=== PATIENT | female | born 1950 | race Caucasian/White ===

== ENCOUNTER → 2017-09-05 | Outpatient (CLI) | payer MEDICARE, BC ==
[2017-09-05 13:59] LABS: APPEARANCE,URINE SLIGHTLY-CLOUDY; BILIRUBIN,URINE NEGATIVE (NEGATIVE); CALCIUM OXALATE CRYSTALS,URINE MODERATE /HPF; COLOR,URINE YELLOW; GLUCOSE, URINE NEGATIVE (NEGATIVE); KETONES,URINE NEGATIVE (NEGATIVE); LEUKOCYTE ESTERASE,URINE NEGATIVE (NEGATIVE); NITRITE,URINE NEGATIVE (NEGATIVE); PROTEIN,URINE NEGATIVE (NEGATIVE); URINE SPECIFIC GRAVITY 1.017
[2017-09-05 14:02] LABS: ABSOLUTE BASOPHILS # (AUTO) 0.1 10^3/uL (0.0-0.2); ABSOLUTE EOSINOPHILS # (AUTO) 0.3 10^3/uL (0.0-0.6); ABSOLUTE LYMPHOCYTES (AUTO) 1.6 10^3/uL (0.5-4.7); ABSOLUTE MONOCYTES (AUTO) 0.4 10^3/uL (0.1-1.4); ABSOLUTE NEUT (AUTO) 2.9 10^3/uL (1.7-8.2); BASOPHILS % (AUTO) 1.3 % (0-2); EOSINOPHILS % (AUTO) 6.4 % (0-6); HEMATOCRIT 37.2 % (36.0-47.0); LYMPHOCYTES % (AUTO) 29.6 % (13-45); MEAN CORPUSCULAR HGB CONC 32.3 g/dL (32.0-36.0); MEAN CORPUSCULAR VOLUME 81 fl (80-97); MONOCYTES % (AUTO) 8.3 % (3-13); PLATELET COUNT 185 10^3/uL (150-450); RED BLOOD COUNT 4.61 10^6/uL (3.72-5.28); RED CELL DISTRIBUTION WIDTH 17.3 % (11.5-14.0); SEGMENTED NEUTROPHILS % (AUTO) 54.4 % (42-78); TOTAL CELLS COUNTED % (AUTO) 100 %; WHITE BLOOD COUNT 5.4 10^3/uL (4.0-10.5)
[2017-09-05 14:20] LABS: ANION GAP 11 (5-19); BLOOD UREA NITROGEN 11 mg/dL (7-20); C-REACTIVE PROTEIN 7.6 mg/L (<10.0); CALCIUM 9.6 mg/dL (8.4-10.2); CARBON DIOXIDE 20 mmol/L (22-30); CHLORIDE 111 mmol/L (98-107); GLUCOSE 73 mg/dL (75-110); POTASSIUM 4.1 mmol/L (3.6-5.0); SODIUM 141.7 mmol/L (137-145)
[2017-09-05 14:28] LABS: ERYTHROCYTE SEDIMENTATION RATE 7 mm/hr (0-30)
--- NOTE | 2017-09-05 14:50 | RADIOLOGY REPORT (SQ) ---
EXAM DESCRIPTION: CHEST PA/LATERAL COMPLETED DATE/TIME: 09/05/2017 1:26 pm REASON FOR STUDY: PRE OP COMPARISON: CT chest 03/12/2011 Chest and rib detail films 02/06/2014 EXAM PARAMETERS: NUMBER OF VIEWS: two views TECHNIQUE: Digital Frontal and Lateral radiographic views of the chest acquired. RADIATION DOSE: NA LIMITATIONS: none FINDINGS: LUNGS AND PLEURA: Minimal bandlike atelectasis right lung base. Lungs are otherwise clear . Trace left pleural fluid in the lateral and posterior costophrenic sulcus. No pneumothorax. MEDIASTINUM AND HILAR STRUCTURES: No masses or contour abnormalities. HEART AND VASCULAR STRUCTURES: Tortuous uncoiled thoracic aorta, stable. BONES: Osteoporotic without thoracic compression deformity. HARDWARE: Clips right upper quadrant post cholecystectomy OTHER: No other significant finding. IMPRESSION: Minimal right basilar bandlike atelectasis. Trace left pleural fluid. TECHNICAL DOCUMENTATION: JOB ID: [id number] [employer]- All Rights Reserved
--- NOTE | 2017-09-05 22:32 | EKG REPORT ---
SEVERITY:- NORMAL ECG - SINUS RHYTHM : Confirmed by: Kaitlyn Sung 05-Sep-2017 22:31:15
== END ==
LOC: OD 12:19
PROVIDERS: ATTEND Orthopaedic Surgery
DX: Z01.810 Encounter for preprocedural cardiovascular examination (principal); Z01.812 Encounter for preprocedural laboratory examination; Z01.818 Encounter for other preprocedural examination; J94.8 Other specified pleural conditions
CPT/HCPCS: 36415; 71046; 80048; 81001; 85025; 85652; 86140; 93005; 93010

== ENCOUNTER 2017-09-19 07:34 | Inpatient (IN) | payer MEDICARE, BC ==
[~2017-09-19 07:34] MED LIST: BUPIVACAINE INJ/PF LIPOSOME/PF 266 MG/20 ML SDV IJ PRN; BUPIVACAINE INJ/PF LIPOSOME/PF 266 MG/20 ML SDV ONE; CEFAZOLIN INJ 1 GM VIAL IV PRN; IBUPROFEN 800 MG/NS 250 ML IV PRN; LACTATED RINGERS 1000 ML IV PRN; LANSOPRAZOLE 15 MG TAB.RAP.DR PO PRN; LIDOCAINE 0.5% INJ-PF (5 MG/ML) 50 ML SDV SUBCUT PRN; OXYCODONE HCL SR 10 MG TABLET PO PRN; THROMBIN (BOVINE) 5000 UNIT EPITAXIS KIT ONE; THROMBIN (BOVINE) TOPICAL 20000 UNIT VIAL ONE; THROMBIN (BOVINE) TOPICAL 5000 UNIT VIAL ONE; VANCOMYCIN HCL 1,000 MG in DEXTROSE 5%-WATER 250 ML IV PRN
--- NOTE | 2017-09-19 08:46 | RADIOLOGY REPORT (SQ) ---
EXAM DESCRIPTION: CHEST SINGLE VIEW COMPLETED DATE/TIME: 09/19/2017 8:33 am REASON FOR STUDY: pre-op COMPARISON: None. EXAM PARAMETERS: NUMBER OF VIEWS: One view. TECHNIQUE: Single frontal radiographic view of the chest acquired. RADIATION DOSE: NA LIMITATIONS: None. FINDINGS: LUNGS AND PLEURA: No opacities, masses or pneumothorax. No pleural effusion. Scarring at the lung bases. MEDIASTINUM AND HILAR STRUCTURES: No masses. Contour normal. HEART AND VASCULAR STRUCTURES: Heart normal in size. Normal vasculature. BONES: Old left humeral head fracture. HARDWARE: None in the chest. OTHER: No other significant finding. IMPRESSION: NO ACUTE RADIOGRAPHIC FINDING IN THE CHEST. Basilar scarring. TECHNICAL DOCUMENTATION: JOB ID: [id number] [employer]- All Rights Reserved
[2017-09-19] MEDS ORDERED: HYDROMORPHONE HCL INJ/PF 2 MG/ML AMPULE ONE ×2 (09:27)
[2017-09-19] MEDS ORDERED: TRANEXAMIC ACID INJ/PF 1,000 MG/10 ML SDV IV ONE ×2 (09:28→14:00)
[2017-09-19] MEDS ORDERED: ONDANSETRON HCL INJ/PF 4 MG/2 ML SDV ONE (09:28)
[2017-09-19] MEDS ORDERED: FENTANYL CITRATE INJ/PF 100 MCG/2 ML AMPUL ONE (09:28)
[2017-09-19] MEDS ORDERED: EPHEDRINE SULFATE INJ 50 MG/1 ML AMPULE ONE (09:28)
[2017-09-19] MEDS ORDERED: MIDAZOLAM 2 MG/2 ML INJ ONE (09:28)
[2017-09-19] MEDS ORDERED: BUPIVACAINE HCL/DEX-WATER/PF 15 MG/2 ML AMPULE ONE (09:31)
--- NOTE | 2017-09-19 10:54 | Operative Report ---
Operative Report DATE OF SURGERY: 09/19/17 PREOPERATIVE DIAGNOSIS: Loose left hip arthroplasty OPERATION: Revision left hip arthroplasty. Sciatic neural lysis SURGEON: IRVIN HEAD GEOSPATIAL TECHNICIAN: HIRAL DURAN ANESTHESIA: Spinal TISSUE REMOVED OR ALTERED: Cultures 2 to microbiology. Implants to CSS ESTIMATED BLOOD LOSS: 200 PROCEDURE: Implants used: Aragon modular druze stem 18 x 1 55, 23 mm proximal body +10, 36 mm ceramic head +2.5 mm Aragon PSL acetabular cage, 52 mm, 36 mm flat cross-link polyethylene liner With the patient in a right lateral decubitus position on the operating table left lower extremity hindquarter prepped and draped in a sterile fashion. A curvilinear incision made over the greater trochanter and a posterior approach the hip was taken. Upon entering the capsule clear yellow fluid is encountered this is sent for culture and sensitivity. Examination of the stem reveals that it is significantly retroverted as well as shortened. Sciatic nerve is identified coming out of the sciatic notch and traced down to the gluteal sling. Is protected throughout the remainder the case. Once the head is disimpacted is clear that the stem itself is loose. Is removed using an extractor system. There is no blunt bone loss. The acetabular repaired using hemispherical reamers until a 52 mm reamer seated. Subsequently 52 mm PSL cup was impacted into position and secured with one screw. A 36 mm flat cross-link Poliquin liner was impacted into position. Attention is now turned to the femur. The femur was prepared using conical reamers until an 18 x 1 55 reamer is seated. Subsequently a Edie modular druze stem 18 mm x 1 55 mm impacted femoral canal. The proximal femur was prepared using a series of cylindrical reamers for the proximal body until 23 mm reamer seated. Subsequently a trial reduction was now performed with 23 mm proximal standard body. Neck lengths are increased from 0-10 mm to increase soft tissue tension and presumably hopefully to restore natural leg length. Trial implants removed from the femur. The final 23 mm proximal body +10 mm is impacted onto the trunnion and secured with a torque wrench. A trial reduction was again performed with standard 36 mm head. It is felt that I can regain slightly more the neck length and a ceramic 36 mm head +2.5 mm extension is impacted onto the trunnion. The hip was reduced. The wound was salvatore care with pulse lavage. Is closed in layers with interrupted Vicryl followed by carlos. Sterile compressive dressing was applied and patient was returned to PACU in satisfactory condition.
[2017-09-19] MEDS ORDERED: PROMETHAZINE HCL 25 MG TABLET PO PRN (11:01)
[2017-09-19] MEDS ORDERED: SUMATRIPTAN SUCCINATE 100 MG TABLET PO PRN ×2 (11:01→21:00)
[2017-09-19] MEDS ORDERED: ZOLPIDEM TARTRATE 5 MG TABLET PO PRN (11:02)
[2017-09-19] MEDS ORDERED: MAG HYDROX/AL HYDROX/SIMETH SUSP 30 ML UDCUP PO PRN (11:02)
[2017-09-19] MEDS ORDERED: ONDANSETRON 4 MG TAB.RAPDIS PO PRN ×2 (11:02→15:00)
[2017-09-19] MEDS ORDERED: ACETAMINOPHEN 325 MG TABLET PO PRN (11:02)
[2017-09-19] MEDS ORDERED: RINGERS SOLUTION,LACTATED 1,000 ML IV PRN (11:02)
[2017-09-19] MEDS ORDERED: ONDANSETRON HCL INJ/PF 4 MG/2 ML SDV IV PRN (11:02)
[2017-09-19] MEDS ORDERED: HYDROMORPHONE HCL INJ/PF 2 MG/ML AMPULE IV PRN (11:07)
--- NOTE | 2017-09-19 11:53 | RADIOLOGY REPORT (SQ) ---
EXAM DESCRIPTION: PELVIS AP/ postop study left hip arthroplasty COMPLETED DATE/TIME: 09/19/2017 11:44 am REASON FOR STUDY: Post Op Long Cassette in PACU T84.031A MECH LOOSENING OF INTERNAL LEFT HIP PROST HETIC JOIN COMPARISON: None. NUMBER OF VIEWS: Three views TECHNIQUE: Digital radiographic images of the pelvis post-procedure LIMITATIONS: None. FINDINGS: BONES: No worrisome or unexpected findings post-procedure. DEVICE: Left hip arthroplasty. SOFT TISSUES: No worrisome findings. Expected postoperative soft tissue changes. IMPRESSION: Postop study left hip arthroplasty. TECHNICAL DOCUMENTATION: JOB ID: [id number] [email or web address]- All Rights Reserved
[2017-09-19] MEDS ORDERED: HYDROXYZINE PAMOATE 25 MG CAPSULE PO SCH (14:00)
[2017-09-19] MEDS: OXYCODONE HCL IR 5 MG TABLET PO PRN (14:50)
[2017-09-19] MEDS ORDERED: ACETAMINOPHEN 100 ML IV ONE (17:00)
[2017-09-19] MEDS: IBUPROFEN 800 MG in NORMAL SALINE 250 ML IV SCH (17:08)
[2017-09-19] MEDS ORDERED: LACTULOSE 30 GM PO SCH (18:00)
[2017-09-19] MEDS: MIRTAZAPINE 15 MG TABLET PO SCH (21:36)
[2017-09-19] MEDS: LACTULOSE SYRUP 20 GM/30 ML UDCUP PO SCH (21:36)
[2017-09-19] MEDS: RIVAROXABAN 10 MG TABLET PO SCH (21:36)
[2017-09-19] MEDS: OXYCODONE HCL SR 10 MG TABLET PO SCH (21:37)
[2017-09-19] MEDS: HYDROXYZINE PAMOATE 50 MG CAPSULE PO SCH (21:37)
[2017-09-19] MEDS: PREGABALIN 75 MG CAPSULE PO SCH (21:46)
[2017-09-19] MEDS ORDERED: VANCOMYCIN HCL 1,000 MG in DEXTROSE 5%-WATER 250 ML IV ONE (23:00)
[2017-09-20] MEDS: OXYCODONE HCL IR 5 MG TABLET PO PRN ×2 (02:00→14:23)
[2017-09-20] MEDS: IBUPROFEN 800 MG in NORMAL SALINE 250 ML IV SCH ×3 (02:00→17:08)
[2017-09-20] MEDS: ONDANSETRON HCL INJ/PF 4 MG/2 ML SDV IV PRN ×2 (02:00→13:11)
[2017-09-20] MEDS ORDERED: LANSOPRAZOLE 30 MG TAB.RAP.DR PO SCH (06:00)
[2017-09-20] MEDS: LANSOPRAZOLE 30 MG TAB.RAP.DR PO SCH (06:22)
[2017-09-20] MEDS: HYDROXYZINE PAMOATE 50 MG CAPSULE PO SCH ×3 (06:22→23:55)
[2017-09-20 06:46] LABS: HEMATOCRIT 26.8 % (36.0-47.0); HEMOGLOBIN 8.8 g/dL (12.0-15.5); MEAN CORPUSCULAR HEMOGLOBIN 26.9 pg (27.0-33.4); MEAN CORPUSCULAR HGB CONC 32.8 g/dL (32.0-36.0); MEAN CORPUSCULAR VOLUME 82 fl (80-97); PLATELET COUNT 117 10^3/uL (150-450); RED BLOOD COUNT 3.27 10^6/uL (3.72-5.28); RED CELL DISTRIBUTION WIDTH 16.8 % (11.5-14.0); WHITE BLOOD COUNT 7.4 10^3/uL (4.0-10.5)
[2017-09-20 07:00] LABS: ANION GAP 7 (5-19); BLOOD UREA NITROGEN 11 mg/dL (7-20); CALCIUM 8.1 mg/dL (8.4-10.2); CARBON DIOXIDE 20 mmol/L (22-30); CHLORIDE 114 mmol/L (98-107); GLUCOSE 103 mg/dL (75-110); POTASSIUM 3.9 mmol/L (3.6-5.0); SODIUM 141.1 mmol/L (137-145)
--- NOTE | 2017-09-20 07:00 | PDOC PROGRESS REPORT ---
Subjective Progress Note for:: 09/20/17 Subjective:: 67-year-old white female one day status post left hemiarthroplasty revision and conversion to total left hip arthroplasty. Patient lying comfortably in hospital bed noting that postoperative pain is present however it is different than preoperative pain. She notes that she had issues with bouts of diarrhea last night. Reason For Visit: MECHANICAL FAILURE LEFT HIP ARTHROPLASTY Physical Exam Vital Signs: Temp Pulse Resp BP Pulse Ox 36.8 C 71 20 129/60 H 100 09/19/17 23:25 09/19/17 23:25 09/19/17 23:25 09/19/17 23:25 09/19/17 23:25 Intake & Output 09/18/17 09/19/17 09/20/17 06:59 06:59 06:59 Intake Total 4450 Output Total 3150 Balance 1300 General appearance: PRESENT: no acute distress, well-developed, well-nourished Head exam: PRESENT: atraumatic, normocephalic Respiratory exam: PRESENT: unlabored Pulses: PRESENT: normal dorsalis pedis pul, +2 pedal pulses bilateral Vascular exam: PRESENT: normal capillary refill Additional comments: Patient sitting upright in hospital bed with bilateral lower extremities in full extension. Her OpSite dressing on the left hip is clean dry and intact. This is left in place. She has minimal lower extremity edema and brisk capillary refill to toes on bilateral lower extremities. Sensory motor functions are intact and leg lengths are equal and distal neurovascular exam is intact. Musculoskeletal exam: PRESENT: ambulatory Additional comments: Patient make slow progress with physical therapy as she is only ambulated 20 feet independently. She will continue to work with physical therapy to improve strength and range of motion of left lower extremity throughout her stay at the hospital. Neurological exam: PRESENT: alert, awake, oriented to person, oriented to place , oriented to time, oriented to situation, CN II-XII grossly intact. ABSENT: motor sensory deficit Psychiatric exam: PRESENT: appropriate affect, normal mood. ABSENT: homicidal ideation, suicidal ideation Skin exam: PRESENT: dry, intact, warm. ABSENT: cyanosis, rash Results Laboratory Results: 09/20/17 06:19 09/19/17 09/20/17 08:05 06:19 WBC 7.4 RBC 3.27 L Hgb 8.8 L Hct 26.8 L MCV 82 MCH 26.9 L MCHC 32.8 RDW 16.8 H Plt Count 117 L Blood Type O POSITIVE Antibody Screen NEGATIVE Impressions: Chest X-Ray 09/19/17 00:00 IMPRESSION: NO ACUTE RADIOGRAPHIC FINDING IN THE CHEST. Basilar scarring. Pelvis X-Ray 09/19/17 11:03 IMPRESSION: Postop study left hip arthroplasty. Assessment & Plan - Diagnosis (1) Mechanical failure of prosthetic joint Qualifiers: Encounter type: initial encounter Qualified Code(s): T84.019A - Broken internal joint prosthesis, unspecified site, initial encounter Is this a current diagnosis for this admission?: Yes - Plan Summary Plan Summary: 67-year-old white female one day status post revision of left hip hemiarthroplasty converted to total left hip arthroplasty. Patient make slow progress with physical therapy only ambulating 20 feet independently. She will continue to work with physical therapy throughout her stay in the hospital to improve strength range of motion of left lower extremity. She is having bouts of diarrhea however this may be due to pre-and postoperative antibiotics. If this persists we may order culture for C. difficile. Pending progress with physical therapy patient will be discharged from hospital later this week.
[2017-09-20] MEDS: CETIRIZINE 10 MG TABLET PO SCH (08:55)
[2017-09-20] MEDS: ASPIRIN 81 MG TABLET, ENT COATED PO SCH (08:55)
[2017-09-20] MEDS: ESCITALOPRAM OXALATE 10 MG TABLET PO SCH (08:56)
[2017-09-20] MEDS: FLUTICASONE NASAL SPRAY 50 MCG/SPRY 120 SPRAY/16 GM NAREB SCH (08:57)
[2017-09-20] MEDS: LACTULOSE SYRUP 20 GM/30 ML UDCUP PO SCH ×2 (08:58→23:53)
[2017-09-20] MEDS: OXYCODONE HCL SR 10 MG TABLET PO SCH ×2 (08:59→23:55)
[2017-09-20] MEDS: MONTELUKAST SODIUM 10 MG TABLET PO SCH (08:59)
[2017-09-20] MEDS: TOPIRAMATE 100 MG TABLET PO SCH (08:59)
[2017-09-20] MEDS: PREGABALIN 75 MG CAPSULE PO SCH ×2 (08:59→23:55)
[2017-09-20] MEDS ORDERED: FENTANYL 50 MCG/HR PATCH.TD72 TOP SCH (11:15)
[2017-09-20] MEDS ORDERED: ONDANSETRON HCL INJ/PF 4 MG/2 ML SDV ONE (13:07)
[2017-09-20] MEDS: LORAZEPAM 1 MG TABLET PO PRN (17:08)
[2017-09-20] MEDS ORDERED: NORMAL SALINE 500 ML IV ONE (21:30)
[2017-09-20 21:57] LABS: HEMATOCRIT 23.8 % (36.0-47.0); MEAN CORPUSCULAR HEMOGLOBIN 26.8 pg (27.0-33.4); MEAN CORPUSCULAR HGB CONC 32.9 g/dL (32.0-36.0); MEAN CORPUSCULAR VOLUME 82 fl (80-97); PLATELET COUNT 113 10^3/uL (150-450); RED BLOOD COUNT 2.92 10^6/uL (3.72-5.28); RED CELL DISTRIBUTION WIDTH 16.6 % (11.5-14.0); WHITE BLOOD COUNT 7.7 10^3/uL (4.0-10.5)
[2017-09-20 22:00] LABS: HEMOGLOBIN 7.8 g/dL (12.0-15.5)
[2017-09-20 22:15] LABS: ANION GAP 6 (5-19); BLOOD UREA NITROGEN 12 mg/dL (7-20); CALCIUM 7.6 mg/dL (8.4-10.2); CARBON DIOXIDE 18 mmol/L (22-30); CHLORIDE 114 mmol/L (98-107); GLUCOSE 96 mg/dL (75-110); POTASSIUM 3.6 mmol/L (3.6-5.0)
[2017-09-20] MEDS: MIRTAZAPINE 15 MG TABLET PO SCH (23:53)
[2017-09-20] MEDS: RIVAROXABAN 10 MG TABLET PO SCH (23:55)
[2017-09-21] MEDS: HYDROXYZINE PAMOATE 50 MG CAPSULE PO SCH ×3 (06:02→21:23)
[2017-09-21] MEDS: IBUPROFEN 800 MG in NORMAL SALINE 250 ML IV SCH ×2 (06:03→09:01)
[2017-09-21] MEDS: LANSOPRAZOLE 30 MG TAB.RAP.DR PO SCH (06:03)
[2017-09-21] MEDS: DIPHENHYDRAMINE HCL 50 MG/ML VIAL IV PRN ×2 (06:19→18:49)
--- NOTE | 2017-09-21 07:20 | PDOC PROGRESS REPORT ---
Subjective Progress Note for:: 09/21/17 Reason For Visit: MECHANICAL FAILURE LEFT HIP ARTHROPLASTY 67-year-old white female postop day 2 left hip revision arthroplasty. Patient has had some mental status changes of the last 24 hours as well as a identification of an acute blood loss anemia. Patient is complaining about a painful rash over the torso and the inguinal region. Physical Exam Vital Signs: Temp Pulse Resp BP Pulse Ox 37.1 C 77 16 104/54 L 100 09/21/17 03:35 09/21/17 03:35 09/21/17 03:35 09/21/17 03:35 09/21/17 03:35 Intake & Output 09/20/17 09/21/17 09/22/17 06:59 06:59 06:59 Intake Total 4450 1592 Output Total 3150 Balance 1300 1592 Weight 65.8 kg General appearance: PRESENT: mild distress Head exam: PRESENT: normocephalic Respiratory exam: PRESENT: unlabored Cardiovascular exam: PRESENT: RRR Pulses: PRESENT: +1 pedal pulses bilateral Vascular exam: PRESENT: normal capillary refill GI/Abdominal exam: PRESENT: soft Gentrourinary exam: PRESENT: other - There is an erythematous rash that begins over the left torso and extends down through the inguinal region Extremities exam: PRESENT: other - Left hip dressing is clean dry and intact. Leg lengths are equal. Distal neurovascular examination is intact. Neurological exam: PRESENT: alert, awake, oriented to person, oriented to place , oriented to time, oriented to situation. ABSENT: motor sensory deficit Psychiatric exam: PRESENT: anxious Skin exam: PRESENT: rash Results Laboratory Results: 09/19/17 09/20/17 09/20/17 08:05 21:40 21:40 WBC 7.7 RBC 2.92 L Hgb 7.8 L Hct 23.8 L MCV 82 MCH 26.8 L MCHC 32.9 RDW 16.6 H Plt Count 113 L Sodium 138.0 Potassium 3.6 Chloride 114 H Carbon Dioxide 18 L Anion Gap 6 BUN 12 Creatinine 0.78 Est GFR ( Amer) > 60 Est GFR (Non-Af Amer) > 60 Glucose 96 Calcium 7.6 L Blood Type O POSITIVE Antibody Screen NEGATIVE Impressions: Chest X-Ray 09/19/17 00:00 IMPRESSION: NO ACUTE RADIOGRAPHIC FINDING IN THE CHEST. Basilar scarring. Pelvis X-Ray 09/19/17 11:03 IMPRESSION: Postop study left hip arthroplasty. Status: Imported from PACS Assessment & Plan - Diagnosis (1) Yeast infection of the skin Is this a current diagnosis for this admission?: Yes Plan: Potential yeast infection from antibiotic administration. Patient be treated with fluconazole (2) Acute blood loss anemia Is this a current diagnosis for this admission?: Yes Plan: Hematocrit dropped below 24%. Patient received 2 units of packed red blood cells last night. Posttransfusion hematocrit is pending. (3) Mechanical failure of prosthetic joint Qualifiers: Encounter type: initial encounter Qualified Code(s): T84.019A - Broken internal joint prosthesis, unspecified site, initial encounter Is this a current diagnosis for this admission?: Yes Plan: Patient with increasing complaints of pain over the last 24 hours associate with passive range of motion of the left lower extremity. Limited progress with physical therapy. - Time Time Spent with patient: 15-24 minutes Anticipated discharge: Home with Homehealth Within: Other - Plan Summary Plan Summary: Patient not currently suitable for discharge home today. We will continue observation and treatment for additional 24 hours.
[2017-09-21 08:00] LABS: ANION GAP 8 (5-19); BLOOD UREA NITROGEN 11 mg/dL (7-20); CALCIUM 8.3 mg/dL (8.4-10.2); CARBON DIOXIDE 17 mmol/L (22-30); CHLORIDE 116 mmol/L (98-107); GLUCOSE 91 mg/dL (75-110); POTASSIUM 3.7 mmol/L (3.6-5.0); SODIUM 141.1 mmol/L (137-145)
[2017-09-21] MEDS ORDERED: FLUCONAZOLE 100 MG TABLET PO ONE (08:00)
[2017-09-21 08:13] LABS: HEMATOCRIT 32.8 % (36.0-47.0); MEAN CORPUSCULAR HEMOGLOBIN 27.7 pg (27.0-33.4); MEAN CORPUSCULAR HGB CONC 33.7 g/dL (32.0-36.0); MEAN CORPUSCULAR VOLUME 82 fl (80-97); PLATELET COUNT 114 10^3/uL (150-450); RED BLOOD COUNT 3.98 10^6/uL (3.72-5.28); RED CELL DISTRIBUTION WIDTH 16.2 % (11.5-14.0)
[2017-09-21 08:14] LABS: HEMOGLOBIN 11.1 g/dL (12.0-15.5)
[2017-09-21] MEDS: TOPIRAMATE 100 MG TABLET PO SCH (08:56)
[2017-09-21] MEDS: LACTULOSE SYRUP 20 GM/30 ML UDCUP PO SCH ×2 (08:56→21:23)
[2017-09-21] MEDS: CETIRIZINE 10 MG TABLET PO SCH (08:57)
[2017-09-21] MEDS: ESCITALOPRAM OXALATE 10 MG TABLET PO SCH (08:57)
[2017-09-21] MEDS: OXYCODONE HCL IR 5 MG TABLET PO PRN (08:58)
[2017-09-21] MEDS: PREGABALIN 75 MG CAPSULE PO SCH ×2 (08:58→21:23)
[2017-09-21] MEDS: LORAZEPAM 1 MG TABLET PO PRN (08:58)
[2017-09-21] MEDS: ASPIRIN 81 MG TABLET, ENT COATED PO SCH (08:58)
[2017-09-21] MEDS: MONTELUKAST SODIUM 10 MG TABLET PO SCH (08:59)
[2017-09-21] MEDS: FLUTICASONE NASAL SPRAY 50 MCG/SPRY 120 SPRAY/16 GM NAREB SCH (09:03)
[2017-09-21] MEDS ORDERED: FENTANYL 50 MCG/HR PATCH.TD72 TOP SCH (10:00)
--- NOTE | 2017-09-21 17:06 | PDOC CONSULTATION ---
Consultation Consult Date: 09/21/17 Attending physician:: IRVIN DUNCAN Consult reason:: Rash History of Present Illness Admission Date/PCP: 09/19/17 07:34 ANNIE LIN Patient complains of: Rash History of Present Illness: TALIA PRADO is a 67 year old female who was admitted to the hospital for left hemiarthroplasty revision. Patient was given Keflex on the and this morning patient complained of rash. Patient reports that she has allergies to different things. Patient's was at bedside. Patient denied any chest pain difficulty swallowing difficulty breathing. Past Medical History Cardiac Medical History: Reports: Hypertension Denies: Atrial Fibrillation, Congestive Heart Failure, Coronary Artery Disease, Myocardial Infarction, Hyperlipidema, Peripheral Vascular Disease, Pulmonary Embolism, Heart Murmur Pulmonary Medical History: Reports: Asthma Denies: Bronchitis, Chronic Obstructive Pulmonary Disease (COPD), Pneumonia, Respiratory Failure, Sleep Apnea, Tuberculosis Neurological Medical History: Denies: Seizures Malignancy Medical History: Denies: Lung Cancer GI Medical History: Reports: Gastroesophageal Reflux Disease Denies: Crohn's Disease, Hiatal Hernia Musculoskeltal Medical History: Reports: Arthritis Denies: Fibromyalgia Psychiatric Medical History: Reports: Depression Denies: Bipolar Disorder, Post Traumatic Stress Disorder Hematology: Denies: Anemia Past Surgical History Past Surgical History: Reports: Appendectomy, Cholecystectomy, Hysterectomy, Tonsillectomy Denies: Amputation, Section, Colostomy, Coronary Artery Bypass Graft , Gastric Bypass Surgery, Herniorrhaphy, Mastectomy, Pacemaker, Tubal Ligation Social History Information Source: Patient Lives with: Spouse/Significant other Smoking Status: Never Smoker Frequency of Alcohol Use: None Hx Recreational Drug Use: No Hx Prescription Drug Abuse: No - Advance Directive Resuscitation Status: Full Code Family History Parental Family History Reviewed: Yes Children Family History Reviewed: Yes Sibling(s) Family History Reviewed.: Yes Medication/Allergy Home Medications: Albuterol Sulfate [Proair HFA Inhalation Aerosol 8.5 gm MDI] 1 puff IH Q6HP PRN 09/20/17 Cetirizine HCl [Zyrtec 10 mg Tablet] 10 mg PO DAILY 09/20/17 Escitalopram Oxalate [Lexapro] 20 mg PO DAILY 09/20/17 Fentanyl [Duragesic 50 Mcg/Hr Transdermal Patch] 1 patch TOP Q3D 09/20/17 Fluticasone Propionate [Flonase Nasal [place] 50 Mcg/[place] 16 gm] 1 spray NASL DAILYP PRN 09/20/17 Hydroxyzine Pamoate [Vistaril 25 mg Capsule] 25 mg PO Q8HP PRN 09/20/17 Lactulose [Cephulac Syrup 20 gm/30 ml Udcup] 30 ml PO BID 09/20/17 Lorazepam [Ativan 1 mg Tablet] 0.5 mg PO Q8HP PRN 09/20/17 Melatonin [Melatonin 5 mg Tablet] 5 mg PO QHS 09/20/17 Mirtazapine 7.5 mg PO QHS 09/20/17 Montelukast Sodium [Singulair 10 mg Tablet] 10 mg PO DAILY 09/20/17 Oxycodone HCl [Oxy-Ir 5 mg Tablet] 5 mg PO Q6HP PRN 09/20/17 Pantoprazole Sodium [Protonix] 40 mg PO DAILY 09/20/17 Promethazine HCl [Phenergan 25 mg Tablet] 25 mg PO Q8HP PRN 09/20/17 Topiramate [Topamax] 200 mg PO DAILY 09/20/17 Allergies/Adverse Reactions: adhesive tape Allergy (Severe, Verified 09/19/17 08:27) Blisters Bee Stings Allergy (Severe, Uncoded 09/19/17 08:27) Anaphylaxis SHRIMP Allergy (Severe, Uncoded 09/19/17 08:27) THROAT SWELLING Review of Systems Constitutional: ABSENT: chills, fever(s), headache(s), weight gain, weight loss Eyes: ABSENT: visual disturbances Ears: ABSENT: hearing changes Cardiovascular: ABSENT: chest pain, dyspnea on exertion, edema, orthropnea, palpitations Respiratory: ABSENT: cough, hemoptysis Gastrointestinal: ABSENT: abdominal pain, constipation, diarrhea, hematemesis, hematochezia, nausea, vomiting Genitourinary: ABSENT: dysuria, hematuria Musculoskeletal: ABSENT: joint swelling Integumentary: PRESENT: erythema, rash. ABSENT: wounds Neurological: ABSENT: abnormal gait, abnormal speech, confusion, dizziness, focal weakness, syncope Psychiatric: ABSENT: anxiety, depression, homidical ideation, suicidal ideation Endocrine: ABSENT: cold intolerance, heat intolerance, polydipsia, polyuria Hematologic/Lymphatic: PRESENT: as per HPI Physical Exam Vital Signs: Temp Pulse Resp BP Pulse Ox 98.3 F 74 18 97/49 L 99 09/21/17 12:26 02/21/18 12:26 09/21/17 12:26 09/21/17 12:26 09/21/17 12:26 Intake & Output 09/20/17 09/21/17 09/22/17 06:59 06:59 06:59 Intake Total 4450 1802 Output Total 3150 Balance 1300 1802 Weight 65.8 kg General appearance: PRESENT: no acute distress, well-developed, well-nourished Head exam: PRESENT: atraumatic, normocephalic Eye exam: PRESENT: conjunctiva pink, EOMI. ABSENT: scleral icterus Ear exam: PRESENT: normal external ear exam Mouth exam: PRESENT: moist, tongue midline Neck exam: ABSENT: carotid bruit, JVD, lymphadenopathy, thyromegaly Respiratory exam: PRESENT: clear to auscultation maya. ABSENT: rales, rhonchi, wheezes Cardiovascular exam: PRESENT: RRR. ABSENT: diastolic murmur, rubs, systolic murmur Pulses: PRESENT: normal dorsalis pedis pul Vascular exam: PRESENT: normal capillary refill GI/Abdominal exam: PRESENT: normal bowel sounds, soft. ABSENT: distended, guarding, mass, organolmegaly, rebound, tenderness Rectal exam: PRESENT: deferred Gentrourinary exam: PRESENT: other - Rash no blanching with erythema in the left groin Extremities exam: PRESENT: full ROM. ABSENT: calf tenderness, clubbing, pedal edema Musculoskeletal exam: PRESENT: full ROM Neurological exam: PRESENT: alert, awake, oriented to person, oriented to place , oriented to time, oriented to situation, CN II-XII grossly intact. ABSENT: motor sensory deficit Psychiatric exam: PRESENT: appropriate affect, normal mood. ABSENT: homicidal ideation, suicidal ideation Skin exam: PRESENT: other - On chest and back patient with blanching rash. Patient has more erythema noted in the left groin most likely complicated by patient scratching. Results Laboratory Results: 09/21/17 06:25 09/21/17 06:25 09/19/17 09/20/17 09/20/17 08:05 21:40 21:40 WBC 7.7 RBC 2.92 L Hgb 7.8 L Hct 23.8 L MCV 82 MCH 26.8 L MCHC 32.9 RDW 16.6 H Plt Count 113 L Sodium 138.0 Potassium 3.6 Chloride 114 H Carbon Dioxide 18 L Anion Gap 6 BUN 12 Creatinine 0.78 Est GFR ( Amer) > 60 Est GFR (Non-Af Amer) > 60 Glucose 96 Calcium 7.6 L Blood Type O POSITIVE Antibody Screen NEGATIVE 09/21/17 09/21/17 06:25 06:25 WBC 8.0 RBC 3.98 Hgb 11.1 L D Hct 32.8 L MCV 82 MCH 27.7 MCHC 33.7 RDW 16.2 H Plt Count 114 L Sodium 141.1 Potassium 3.7 Chloride 116 H Carbon Dioxide 17 L Anion Gap 8 BUN 11 Creatinine 0.63 Est GFR ( Amer) > 60 Est GFR (Non-Af Amer) > 60 Glucose 91 Calcium 8.3 L Blood Type Antibody Screen Impressions: Chest X-Ray 09/19/17 00:00 IMPRESSION: NO ACUTE RADIOGRAPHIC FINDING IN THE CHEST. Basilar scarring. Pelvis X-Ray 09/19/17 11:03 IMPRESSION: Postop study left hip arthroplasty. Assessment & Plan - Diagnosis (1) Drug rash Is this a current diagnosis for this admission?: Yes Plan: Secondary to Cefazolin that patient received on 09/19/2017: Agree with antihistamines will place patient on prednisone 60 mg p.o. daily and taper. (2) Acute blood loss anemia Is this a current diagnosis for this admission?: Yes Plan: Secondary to Surgery: Will continue to monitor. (3) Mechanical failure of prosthetic joint Qualifiers: Encounter type: initial encounter Qualified Code(s): T84.019A - Broken internal joint prosthesis, unspecified site, initial encounter Is this a current diagnosis for this admission?: Yes Plan: Per Ortho. - Time Time Spent: 30 to 50 Minutes
[2017-09-21] MEDS ORDERED: PREDNISONE 20 MG TABLET PO ONE (17:30)
[2017-09-21] MEDS: RIVAROXABAN 10 MG TABLET PO SCH (21:23)
[2017-09-21] MEDS: MIRTAZAPINE 15 MG TABLET PO SCH (21:23)
[2017-09-22] MEDS: HYDROXYZINE PAMOATE 50 MG CAPSULE PO SCH (05:38)
[2017-09-22] MEDS: LANSOPRAZOLE 30 MG TAB.RAP.DR PO SCH (05:38)
[2017-09-22] MEDS: DIPHENHYDRAMINE HCL 50 MG/ML VIAL IV PRN (05:39)
--- NOTE | 2017-09-22 07:03 | PDOC DISCHARGE SUMMARY ---
General - Admit/Disc Date/PCP Admission Date/Primary Care Provider: 09/19/17 07:34 ANNIE LIN Discharge Date: 09/22/17 - Discharge Diagnosis (1) Mechanical failure of prosthetic joint Is this a current diagnosis for this admission?: Yes - Additional Information Resuscitation Status: Full Code Discharge Diet: As Tolerated, Regular Discharge Activity: No Driving, No tub bath, Walk Frequently Home Medications: Albuterol Sulfate [Proair HFA Inhalation Aerosol 8.5 gm MDI] 1 puff IH Q6HP PRN 09/20/17 Cetirizine HCl [Zyrtec 10 mg Tablet] 10 mg PO DAILY 09/20/17 Escitalopram Oxalate [Lexapro] 20 mg PO DAILY 09/20/17 Fentanyl [Duragesic 50 Mcg/Hr Transdermal Patch] 1 patch TOP Q3D 09/20/17 Fluticasone Propionate [Flonase Nasal Rimforest 50 Mcg/Rimforest 16 gm] 1 spray NASL DAILYP PRN 09/20/17 Hydroxyzine Pamoate [Vistaril 25 mg Capsule] 25 mg PO Q8HP PRN 09/20/17 Lactulose [Cephulac Syrup 20 gm/30 ml Udcup] 30 ml PO BID 09/20/17 Lorazepam [Ativan 1 mg Tablet] 0.5 mg PO Q8HP PRN 09/20/17 Melatonin [Melatonin 5 mg Tablet] 5 mg PO QHS 09/20/17 Mirtazapine 7.5 mg PO QHS 09/20/17 Montelukast Sodium [Singulair 10 mg Tablet] 10 mg PO DAILY 09/20/17 Oxycodone HCl [Oxy-Ir 5 mg Tablet] 5 mg PO Q6HP PRN 09/20/17 Pantoprazole Sodium [Protonix] 40 mg PO DAILY 09/20/17 Promethazine HCl [Phenergan 25 mg Tablet] 25 mg PO Q8HP PRN 09/20/17 Topiramate [Topamax] 200 mg PO DAILY 09/20/17 History of Present Illness History of Present Illness: TALIA PRADO is a 67 year old female who previously underwent left hip hemiarthroplasty with progressive pain and decreased functional mobility. Patient was admitted through the OR for elective revision of left hip hemiarthroplasty which was converted to a total left hip arthroplasty. This was an uncomplicated procedure and she will be discharged her home today. Hospital Course Hospital Course: 67-year-old white female who previously underwent left hip hemiarthroplasty with progressive pain and decreased functional mobility admitted to the hospital through the OR to undergo elective left hip hemiarthroplasty revision which was converted to a total left hip arthroplasty. This procedure was on complicated patient was taken to PACU in satisfactory condition. She was returned to the surgical floor she was seen by nursing staff and Dr. Vargas for pain control as well as physical therapy for weightbearing as tolerated. She made progress with physical therapy ambulating independently. She initially had issues with a postoperative rash which was determined to be either a drug rash from the pre-and postoperative antibiotics and/or overgrowth of yeast. She was treated for a yeast infection. She also initially had a acute blood loss anemia and was therefore transfused with 2 units of packed red blood cells. Her hematocrit and hemoglobin have returned to appropriate levels. She will be discharged her home today with home health nursing, home physical therapy, wheeled walker, bedside commode. Physical Exam Vital Signs: Temp Pulse Resp BP Pulse Ox 36.7 C 68 16 107/63 95 09/22/17 04:00 09/22/17 04:00 09/22/17 04:00 09/22/17 04:00 09/22/17 04:00 Intake & Output 09/20/17 09/21/17 09/22/17 06:59 06:59 06:59 Intake Total 4450 1802 818 Output Total 3150 Balance 1300 1802 818 Weight 65.8 kg General appearance: PRESENT: no acute distress, well-developed, well-nourished Head exam: PRESENT: atraumatic Respiratory exam: PRESENT: unlabored Pulses: PRESENT: normal dorsalis pedis pul, +2 pedal pulses bilateral Vascular exam: PRESENT: normal capillary refill Additional comments: Patient lying recumbent in hospital bed with bilateral lower extremities in full extension. Patient's OpSite dressing is clean dry and intact. This is left in place. There is minimal pedal edema brisk capillary refill to toes on bilateral lower extremities distal neurovascular exam is intact in leg lengths equal. Musculoskeletal exam: PRESENT: ambulatory Additional comments: Patient made progress with physical therapy ambulating postoperatively upwards of 100 feet. She will continue to work with home physical therapy to improve strength range of motion of left lower extremity. Neurological exam: PRESENT: alert, awake, oriented to person, oriented to place , oriented to time, oriented to situation, CN II-XII grossly intact. ABSENT: motor sensory deficit Psychiatric exam: PRESENT: appropriate affect, normal mood. ABSENT: homicidal ideation, suicidal ideation Skin exam: PRESENT: dry, intact, warm. ABSENT: cyanosis, rash Additional comments: There is a rash present on patient's lower abdomen groin and inguinal areas. It appears to have decreased its surface area from previous exam completed yesterday morning. It was supposed that that this was a overaggressive yeast and she was treated accordingly. Results Laboratory Results: 09/21/17 06:25 09/21/17 06:25 09/21/17 09/21/17 06:25 06:25 WBC 8.0 RBC 3.98 Hgb 11.1 L D Hct 32.8 L MCV 82 MCH 27.7 MCHC 33.7 RDW 16.2 H Plt Count 114 L Sodium 141.1 Potassium 3.7 Chloride 116 H Carbon Dioxide 17 L Anion Gap 8 BUN 11 Creatinine 0.63 Est GFR ( Amer) > 60 Est GFR (Non-Af Amer) > 60 Glucose 91 Calcium 8.3 L Impressions: Chest X-Ray 09/19/17 00:00 IMPRESSION: NO ACUTE RADIOGRAPHIC FINDING IN THE CHEST. Basilar scarring. Pelvis X-Ray 09/19/17 11:03 IMPRESSION: Postop study left hip arthroplasty. Qualifiers - * PATEINT BEING DISCHARGED WITH ANY OF THE FOLLOWING DIAGNOSIS?: No Stroke Pt being discharged on Anti-thrombolytic therapy?: Yes Plan Discharge Plan: 67-year-old white female status post left hip hemiarthroplasty revision which was converted to a total left hip arthroplasty. Patient has made progress with physical therapy ambulating weightbearing as tolerated postoperatively up to 100 feet. She initially had issues with a rash that appeared on her lower abdomen and inguinal area which was determined to be either a postoperative antibiotic drug rash and/or an overgrowth of yeast. She was treated for a yeast infection accordingly. Additionally she experienced a acute blood loss anemia postoperatively for which she was transfused with 2 units of packed red blood cells. Her hematocrit and hemoglobin levels are returning to appropriate levels with a hematocrit this morning of 32.8. After this transfusion I believe they will return to normal values. She will be discharged home today with home health nursing, home physical therapy, wheeled walker, bedside commode. She will follow-up with Dr. Vargas at [facility] surgery 2 weeks postoperatively for reevaluation and staple removal. Time Spent: Less than 30 Minutes
[2017-09-22] MEDS: OXYCODONE HCL IR 5 MG TABLET PO PRN (07:48)
[2017-09-22 08:41] VITALS: BP 131/70
[2017-09-22 08:42] LABS: HEMATOCRIT 31.5 % (36.0-47.0); HEMOGLOBIN 10.4 g/dL (12.0-15.5); MEAN CORPUSCULAR HEMOGLOBIN 27.4 pg (27.0-33.4); MEAN CORPUSCULAR HGB CONC 33.2 g/dL (32.0-36.0); MEAN CORPUSCULAR VOLUME 82 fl (80-97); PLATELET COUNT 142 10^3/uL (150-450); RED BLOOD COUNT 3.82 10^6/uL (3.72-5.28); RED CELL DISTRIBUTION WIDTH 16.5 % (11.5-14.0)
[2017-09-22 09:14] LABS: ALANINE AMINOTRANSFERASE 30 U/L (9-52); ALBUMIN 2.6 g/dL (3.5-5.0); ALKALINE PHOSPHATASE 294 U/L (38-126); ANION GAP 10 (5-19); ASPARTATE AMINO TRANSFERASE 28 U/L (14-36); BILIRUBIN,DIRECT 0.5 mg/dL (0.0-0.4); BILIRUBIN,TOTAL 0.6 mg/dL (0.2-1.3); BLOOD UREA NITROGEN 11 mg/dL (7-20); CALCIUM 8.6 mg/dL (8.4-10.2); CARBON DIOXIDE 17 mmol/L (22-30); CHLORIDE 115 mmol/L (98-107); GLUCOSE 153 mg/dL (75-110); POTASSIUM 3.8 mmol/L (3.6-5.0); SODIUM 141.8 mmol/L (137-145); TOTAL PROTEIN 4.9 g/dL (6.3-8.2)
[2017-09-22] MEDS: CETIRIZINE 10 MG TABLET PO SCH (09:21)
[2017-09-22] MEDS: PREGABALIN 75 MG CAPSULE PO SCH (09:21)
[2017-09-22] MEDS: TOPIRAMATE 100 MG TABLET PO SCH (09:21)
[2017-09-22] MEDS: ASPIRIN 81 MG TABLET, ENT COATED PO SCH (09:21)
[2017-09-22] MEDS: MONTELUKAST SODIUM 10 MG TABLET PO SCH (09:22)
[2017-09-22] MEDS: ESCITALOPRAM OXALATE 10 MG TABLET PO SCH (09:22)
[2017-09-22] MEDS: LACTULOSE SYRUP 20 GM/30 ML UDCUP PO SCH (09:23)
[2017-09-22] MEDS: FLUTICASONE NASAL SPRAY 50 MCG/SPRY 120 SPRAY/16 GM NAREB SCH (09:29)
[2017-09-22] MEDS ORDERED: PREDNISONE 20 MG TABLET PO SCH (10:00)
--- NOTE | 2017-09-22 14:45 | PDOC PROGRESS REPORT ---
Subjective Progress Note for:: 09/22/17 Subjective:: Patient states her rash is improving. Reason For Visit: MECHANICAL FAILURE LEFT HIP ARTHROPLASTY Physical Exam Vital Signs: Temp Pulse Resp BP Pulse Ox 98.9 F 73 18 131/70 H 99 09/22/17 07:22 09/22/17 07:22 09/22/17 07:22 09/22/17 07:22 09/22/17 07:22 Intake & Output 09/21/17 09/22/17 09/23/17 06:59 06:59 06:59 Intake Total 1802 1238 Balance 1802 1238 Weight 65.8 kg General appearance: PRESENT: no acute distress, well-developed, well-nourished Head exam: PRESENT: atraumatic, normocephalic Eye exam: PRESENT: conjunctiva pink, EOMI, PERRLA. ABSENT: scleral icterus Ear exam: PRESENT: normal external ear exam Mouth exam: PRESENT: moist, tongue midline Neck exam: ABSENT: carotid bruit, JVD, lymphadenopathy, thyromegaly Respiratory exam: PRESENT: clear to auscultation maya. ABSENT: rales, rhonchi, wheezes Cardiovascular exam: PRESENT: RRR. ABSENT: diastolic murmur, rubs, systolic murmur Pulses: PRESENT: normal dorsalis pedis pul Vascular exam: PRESENT: normal capillary refill GI/Abdominal exam: PRESENT: normal bowel sounds, soft. ABSENT: distended, guarding, mass, organolmegaly, rebound, tenderness Rectal exam: PRESENT: deferred Extremities exam: PRESENT: full ROM. ABSENT: calf tenderness, clubbing, pedal edema Neurological exam: PRESENT: alert, awake, oriented to person, oriented to place , oriented to time, oriented to situation, CN II-XII grossly intact. ABSENT: motor sensory deficit Psychiatric exam: PRESENT: appropriate affect, normal mood. ABSENT: homicidal ideation, suicidal ideation Skin exam: PRESENT: other - Less erythema noted on back and chest. Patient with blanching erythema which is resolving Results Laboratory Results: 09/22/17 08:33 09/22/17 08:33 09/22/17 09/22/17 08:33 08:33 WBC 10.0 RBC 3.82 Hgb 10.4 L Hct 31.5 L MCV 82 MCH 27.4 MCHC 33.2 RDW 16.5 H Plt Count 142 L Sodium 141.8 Potassium 3.8 Chloride 115 H Carbon Dioxide 17 L Anion Gap 10 BUN 11 Creatinine 0.53 Est GFR ( Amer) > 60 Est GFR (Non-Af Amer) > 60 Glucose 153 H Calcium 8.6 Total Bilirubin 0.6 AST 28 ALT 30 Alkaline Phosphatase 294 H Total Protein 4.9 L Albumin 2.6 L Impressions: Chest X-Ray 09/19/17 00:00 IMPRESSION: NO ACUTE RADIOGRAPHIC FINDING IN THE CHEST. Basilar scarring. Pelvis X-Ray 09/19/17 11:03 IMPRESSION: Postop study left hip arthroplasty. Assessment & Plan - Diagnosis (1) Drug rash Is this a current diagnosis for this admission?: Yes Plan: Secondary to Cefazolin that patient received on 09/19/2017: Patient will continue with antihistamines and placed on Medrol Dosepak. (2) Acute blood loss anemia Is this a current diagnosis for this admission?: Yes Plan: Secondary to Surgery: Will continue to monitor. (3) Mechanical failure of prosthetic joint Qualifiers: Encounter type: initial encounter Qualified Code(s): T84.019A - Broken internal joint prosthesis, unspecified site, initial encounter Is this a current diagnosis for this admission?: Yes Plan: Per Ortho. - Time Time Spent with patient: 15-24 minutes
== END 2017-09-22 11:39 | disposition home health service (06) | DRG 467 ==
LOC: INOR 07:34 → 4S 12:38
PROVIDERS: ADMIT Orthopaedic Surgery; ATTEND Orthopaedic Surgery
PROC: 0SPB0JZ Removal of Synthetic Substitute from Left Hip Joint, Open Approach (ICD-10-PCS; 2017-09-19)
PROC: 01NF0ZZ Release Sciatic Nerve, Open Approach (ICD-10-PCS; 2017-09-19)
PROC: 0SRB02A Replacement of Left Hip Joint with Metal on Polyethylene Synthetic Substitute, Uncemented, Open Approach (ICD-10-PCS; principal; 2017-09-19 10:00)
PROC: 30233N1 Transfusion of Nonautologous Red Blood Cells into Peripheral Vein, Percutaneous Approach (ICD-10-PCS; 2017-09-21)
DX: T84.031A Mechanical loosening of internal left hip prosthetic joint, initial encounter (principal); D62 Acute posthemorrhagic anemia; L27.0 Generalized skin eruption due to drugs and medicaments taken internally; B37.2 Candidiasis of skin and nail; I10 Essential (primary) hypertension; J45.909 Unspecified asthma, uncomplicated; K21.9 Gastro-esophageal reflux disease without esophagitis; M19.90 Unspecified osteoarthritis, unspecified site; F32.9 Major depressive disorder, single episode, unspecified; T36.1X5A Adverse effect of cephalosporins and other beta-lactam antibiotics, initial encounter; G47.00 Insomnia, unspecified; G89.4 Chronic pain syndrome; M47.896 Other spondylosis, lumbar region; M54.12 Radiculopathy, cervical region; I25.10 Atherosclerotic heart disease of native coronary artery without angina pectoris; G43.909 Migraine, unspecified, not intractable, without status migrainosus; M79.7 Fibromyalgia; Z79.899 Other long term (current) drug therapy; Z90.49 Acquired absence of other specified parts of digestive tract; Z90.710 Acquired absence of both cervix and uterus; Z91.030 Bee allergy status; Z91.013 Allergy to seafood
CPT/HCPCS: 01215; 36415; 36430; 71045; 72170; 80048; 80053; 85027; 86850; 86900; 86901; 86920; 87070; 87075; 87205; 94799; C1713; C1780; C9290; G8978-GP; G8979-GP; G8987-GO; G8988-GO; J0131; J0690; J1170; J1200; J1741; J2250; J2405; J3010; J3370; J3490; J7040; J7050; J7060; J7512; P9016

== ENCOUNTER → 2017-12-28 | Outpatient (CLI) | payer MEDICARE, BC ==
[2017-12-28 10:19] LABS: ABSOLUTE BASOPHILS # (AUTO) 0.1 10^3/uL (0.0-0.2); ABSOLUTE EOSINOPHILS # (AUTO) 0.4 10^3/uL (0.0-0.6); ABSOLUTE LYMPHOCYTES (AUTO) 1.8 10^3/uL (0.5-4.7); ABSOLUTE MONOCYTES (AUTO) 0.6 10^3/uL (0.1-1.4); ABSOLUTE NEUT (AUTO) 2.8 10^3/uL (1.7-8.2); EOSINOPHILS % (AUTO) 6.8 % (0-6); HEMATOCRIT 39.2 % (36.0-47.0); HEMOGLOBIN 12.4 g/dL (12.0-15.5); MEAN CORPUSCULAR HEMOGLOBIN 25.9 pg (27.0-33.4); MEAN CORPUSCULAR HGB CONC 31.7 g/dL (32.0-36.0); MEAN CORPUSCULAR VOLUME 82 fl (80-97); MONOCYTES % (AUTO) 10.6 % (3-13); PLATELET COUNT 165 10^3/uL (150-450); RED CELL DISTRIBUTION WIDTH 16.3 % (11.5-14.0); SEGMENTED NEUTROPHILS % (AUTO) 48.6 % (42-78); TOTAL CELLS COUNTED % (AUTO) 100 %; WHITE BLOOD COUNT 5.7 10^3/uL (4.0-10.5)
[2017-12-28 10:57] LABS: ALANINE AMINOTRANSFERASE 50 U/L (9-52); ALBUMIN 3.4 g/dL (3.5-5.0); ALKALINE PHOSPHATASE 305 U/L (38-126); AMYLASE 31 U/L (30-110); ANION GAP 10 (5-19); ASPARTATE AMINO TRANSFERASE 59 U/L (14-36); BILIRUBIN,DIRECT 0.3 mg/dL (0.0-0.4); BILIRUBIN,TOTAL 0.4 mg/dL (0.2-1.3); BLOOD UREA NITROGEN 16 mg/dL (7-20); CALCIUM 9.1 mg/dL (8.4-10.2); CARBON DIOXIDE 24 mmol/L (22-30); CHLORIDE 113 mmol/L (98-107); GLUCOSE 73 mg/dL (75-110); LIPASE 112.2 U/L (23-300); POTASSIUM 4.1 mmol/L (3.6-5.0); SODIUM 146.6 mmol/L (137-145); TOTAL PROTEIN 5.9 g/dL (6.3-8.2)
== END ==
LOC: OD 08:50
PROVIDERS: ATTEND Physician Assistant Surgical
DX: R93.2 Abnormal findings on diagnostic imaging of liver and biliary tract (principal); R94.5 Abnormal results of liver function studies
CPT/HCPCS: 36415; 80053; 82150; 83690; 85025

== ENCOUNTER → 2017-12-28 | Outpatient (CLI) | payer MEDICARE, BC ==
--- NOTE | 2017-12-28 08:59 | WOMENS IMAGING REPORT ---
EXAM DESCRIPTION: U/S ABDOMEN TOTAL COMPLETED DATE/TIME: 12/28/2017 8:28 am REASON FOR STUDY: ABNORMAL RESULTS OF LIVER FUNCTION STUDIES R94.5 ABNORMAL RESULTS OF LIVER FUNCTI ON STUDIES R93.2 ABNORMAL FINDINGS ON DX IMAGING OF LIVER AND BILIARY T COMPARISON: CT chest 03/12/2011 ERCP 07/06/2016 TECHNIQUE: Dynamic and static grayscale images acquired of the abdomen and recorded on PACS. Additio nal selected color Doppler and spectral images recorded. LIMITATIONS: Midline bowel gas FINDINGS: PANCREAS: Not visualized LIVER: Right lobe liver is visualized, no biliary ductal dilatation caps. Normal portal vein and hep atic vein flow right lobe. Left lobe liver is not visualize, there is midline bowel gas. Patient gi ves a history of a portion of the liver being resected. LIVER VASCULATURE: Normal directional flow of the main portal vein and hepatic veins. GALLBLADDER: Surgically absent ULTRASOUND-DETECTED CARLOS'S SIGN: Not applicable INTRAHEPATIC DUCTS AND COMMON DUCT: Right lobe liver intrahepatic ducts are nondilated. Common duct not visualized INFERIOR VENA CAVA: Normal flow. AORTA: Not well seen RIGHT KIDNEY: Normal size. Normal echogenicity. No solid or suspicious masses. No hydronephros is. No calcifications. LEFT KIDNEY: Normal size. Normal echogenicity. No solid or suspicious masses. No hydronephrosi s. No calcifications. SPLEEN: Normal size. No solid masses. PERITONEAL AND PLEURAL SPACES: No ascites or effusions. OTHER: No other significant finding. IMPRESSION: Post resection of the gallbladder and portion of liver, likely the left lobe. Visualized right lobe liver demonstrates grossly normal echotexture without biliary ductal dilatation or masses. TECHNICAL DOCUMENTATION: JOB ID: [id number]- All Rights Reserved Reading location - IP/workstation name: [email or web address]
== END ==
LOC: WI 07:37
PROVIDERS: ATTEND Internal Medicine Gastroenterology
DX: R94.5 Abnormal results of liver function studies (principal); R93.2 Abnormal findings on diagnostic imaging of liver and biliary tract
CPT/HCPCS: 76700

== ENCOUNTER 2018-02-21 15:13 | Day surgery (SDC) | payer MEDICARE, BC ==
[2018-02-21] MEDS ORDERED: NALOXONE HCL INJ/PF 0.4 MG/1 ML SDV ONE (15:27)
[2018-02-21] MEDS ORDERED: DIPHENHYDRAMINE HCL 50 MG/ML VIAL ONE (15:27)
[2018-02-21] MEDS ORDERED: EPINEPHRINE INJ 1 MG/10 ML DISP.SYRIN ONE (15:28)
[2018-02-21] MEDS ORDERED: GLUCAGON,HUMAN RECOMB 1 MG INJ ONE (15:28)
[2018-02-21] MEDS ORDERED: FENTANYL CITRATE INJ/PF 100 MCG/2 ML AMPUL ONE (15:28)
[2018-02-21] MEDS ORDERED: FLUMAZENIL INJ 0.5 MG/5 ML VIAL ONE (15:28)
[2018-02-21] MEDS: MIDAZOLAM 2 MG/2 ML INJ ONE ×2 (15:47→15:51)
--- NOTE | 2018-02-21 16:04 | Operative Report ---
Operative Report DATE OF SURGERY: 02/21/18 Operative Report: Pre-op diagnosis: Epigastric pain and history of cirrhosis Post-op diagnosis: 1. Mild gastritis involving the body 2. Normal gastrojejunal anastomosis Surgery: Esophagogastroduodenoscopy with biopsy Medications: Versed 2mg Fentanyl 50mcg IV push Tissue removed: Gastric body biopsy for pathology Procedure: After informed consent obtained from patient, the throat was sprayed with Hurricane and conscious sedation was achieved. The upper endoscope was inserted into the esophagus under direct vision and advanced into the stomach. She has a gastrojejunal anastomosis from a previous Orion-en-Y surgery. Endoscope was then slowly pulled out of the patient as the mucosa was examined into details. Patient tolerated procedure well. Findings Esophagus: Normal. No varices identified Antrum: Resected Body: Mild erythema Fundus: Normal Plan: Await pathology. Continue Protonix OPERATION: .
[2018-02-21 17:05] VITALS: BP 120/66
== END 2018-02-21 17:05 | disposition home or self-care (01) ==
LOC: END 15:13
PROVIDERS: ATTEND Internal Medicine Gastroenterology
DX: K29.50 Unspecified chronic gastritis without bleeding (principal); K74.69 Other cirrhosis of liver; R94.5 Abnormal results of liver function studies; G93.41 Metabolic encephalopathy; R60.0 Localized edema; M19.90 Unspecified osteoarthritis, unspecified site; I10 Essential (primary) hypertension; J45.909 Unspecified asthma, uncomplicated; E78.5 Hyperlipidemia, unspecified; M79.7 Fibromyalgia; K58.9 Irritable bowel syndrome, unspecified; Z79.899 Other long term (current) drug therapy; Z79.51 Long term (current) use of inhaled steroids; Z87.11 Personal history of peptic ulcer disease; Z85.89 Personal history of malignant neoplasm of other organs and systems; Z87.892 Personal history of anaphylaxis
CPT/HCPCS: 43239; 88342 ×2; 88305 ×2; J2250; J3010; J0171; J1200; J1610; J2310; J3490